=== PATIENT | female | born 1945 | race Two or more races ===

== ENCOUNTER 2025-06-16 22:04 | Inpatient (IN) | payer OTHER ==
[~2025-06-16] VITALS: Ht 157.5 cm; Wt 54.0 kg
--- NOTE | 2025-06-16 22:12 | NUR ---
SE RECIBE PACIENTE EN AMBULANCIA ACOMPANA[facility] DE H[facility]A Y ESTA REFIERE DESIRE SUFRIDO KATHY CAIDA EN EL HOGAR. SE ALICIA S/V Y SE UBICA.
[2025-06-16] MEDS ORDERED: DIOVAN HCT 1601 EAC1 PO (23:44)
[2025-06-16] MEDS ORDERED: 0.9 % SODIUM CHLORIDE 500 ML IV ONE (23:45)
[2025-06-16] MEDS ORDERED: CLONIDINE HCL0.1 MG PO (23:45)
[2025-06-16] MEDS ORDERED: ELIQUIS5 MG PO (23:46)
--- NOTE | 2025-06-17 00:36 | NUR ---
SE EDUCA ACERCA DE TX ORDENADO Y REFIERE ENTENDER. SE CANALIZA Y COLECTAN MUESTRAS DE LABORATORIO MEDIANTE MEDIDAS ASEPTICAS. SE ALICIA BP MANUAL.
[2025-06-17 00:52] LABS: ALT/SGPT 85.0 U/L (12-78); AST/SGOT 323.0 U/L (15-37); BILIRUBIN TOTAL 3.12 mg/dL (0.3-1.2); BUN CREA RATIO 24.0 (7.0-25.0); CREATININE SERUM 0.74 mg/dL (0.55-1.02); GLOBULINA 3.4 G/DL (2.4-3.5); GLUCOSE FASTING 155.0 mg/dL (65-100)
[2025-06-17 00:58] LABS: OSMOLALITY SERUM 229.0 MOSM/KG (275-295)
[2025-06-17 01:00] LABS: GFR 75.51
[2025-06-17] MEDS ORDERED: FAMOTIDINE/PF 20 MG/2 ML VIAL IV PUSH STA (01:02)
[2025-06-17] MEDS ORDERED: ONDANSETRON HCL 2 MG/ML VIAL IV STA (01:03)
[2025-06-17] MEDS ORDERED: ONDANSETRON HCL 2 MG/ML VIAL ONE (01:45)
[2025-06-17] MEDS ORDERED: FAMOTIDINE/PF 20 MG/2 ML VIAL ONE (01:45)
[2025-06-17 02:47] LABS: BASO % 0.2 % (0.1-1.2); EOS # 0.00 (0.04-0.54); EOS % 0.0 % (0.7-7.0); LYMPH # 0.41 (1.18-3.74); LYMPH % 3.7 % (19.3-53.1); MEAN PLATELET VOLUME 10.00 fl (9.4-12.4); MONO # 1.29 (0.24-0.82); MONO % 11.5 % (4.7-12.5); NEUT # 9.40 (1.56-6.13); NEUT % 84.2 % (34.0-71.1); RED CELL DISTRIBUTION WIDTH 11.0 % (11.6-14.4)
[2025-06-17 03:14] LABS: ALT/SGPT 87.0 U/L (12-78); AST/SGOT 322.0 U/L (15-37); BILIRUBIN TOTAL 3.04 mg/dL (0.3-1.2); BUN CREA RATIO 28.0 (7.0-25.0); CREATININE SERUM 0.6 mg/dL (0.55-1.02); GFR 96.19; GLOBULINA 2.8 G/DL (2.4-3.5); GLUCOSE FASTING 156.0 mg/dL (65-100); OSMOLALITY SERUM 226.0 MOSM/KG (275-295)
[2025-06-17] MEDS ORDERED: POTASSIUM BICARBONATE/CIT AC 25 MEQ TABLET.EFF PO ONE (12:45)
[2025-06-17] MEDS ORDERED: 0.9 % SODIUM CHLORIDE 1,000 ML IV SCH (12:45)
[2025-06-17] MEDS ORDERED: POTASSIUM CHLORIDE IN WATER 100 ML IV ONE ×2 (12:45→17:30)
[2025-06-17 15:44] LABS: BASO % 0.1 % (0.1-1.2); EOS # 0.00 (0.04-0.54); EOS % 0.0 % (0.7-7.0); LYMPH # 0.59 (1.18-3.74); LYMPH % 5.3 % (19.3-53.1); MEAN PLATELET VOLUME 10.40 fl (9.4-12.4); MONO # 1.37 (0.24-0.82); NEUT # 9.14 (1.56-6.13); NEUT % 81.9 % (34.0-71.1); RED CELL DISTRIBUTION WIDTH 11.0 % (11.6-14.4)
[2025-06-17 15:46] LABS: MONO % 12.3 % (4.7-12.5)
[2025-06-17 16:04] LABS: ALT/SGPT 82.0 U/L (12-78); AST/SGOT 250.0 U/L (15-37); BILIRUBIN TOTAL 3.23 mg/dL (0.3-1.2); BUN CREA RATIO 19.0 (7.0-25.0); CREATININE SERUM 0.78 mg/dL (0.55-1.02); GFR 71.06; GLOBULINA 2.7 G/DL (2.4-3.5); GLUCOSE FASTING 143.0 mg/dL (65-100)
[2025-06-17 17:16] LABS: OSMOLALITY SERUM 234.0 MOSM/KG (275-295)
[2025-06-17 17:45] LABS: COVID-19 AG NEGATIVE (NEGATIVE)
[2025-06-17] MEDS ORDERED: POTASSIUM PHOS,M-BASIC-D-BASIC 3 MM/ML VIAL IV ONE (17:45)
[2025-06-17] MEDS ORDERED: ONDANSETRON HCL 4 MG in 0.9 % SODIUM CHLORIDE 50 ML IV PRN (17:45)
[2025-06-18] VITALS (8 sets, daily range): BP systolic 105–160; BP diastolic 55–90; O2SAT 96–100
[2025-06-18] MEDS ORDERED: hydrALAZINE HCL 20 MG VIAL IV PRN (06:45)
[2025-06-18 08:08] LABS: URINE APPEARANCE Clear; URINE BILIRRUBIN Negative (NEGATIVE); URINE BLOOD Large; URINE COLOR Yellow; URINE GLUCOSE Negative (NEGATIVE); URINE KETONE 15 (NEGATIVE); URINE LEUKOCYTE Small; URINE NITRATE Negative; URINE PROTEIN 30 (NEGATIVE); URINE UROBILINOGEN 1.0 E.U./dl
[2025-06-18 08:10] LABS: URINE EPITHELIAL CELLS 18.1 uL (0.0-38.8); URINE RBC 12.6 uL (0.0-20.8); URINE WBC 37.6 uL (0.0-23.2)
[2025-06-18 08:44] LABS: BUN CREA RATIO 20.0 (7.0-25.0); CREATININE SERUM 0.56 mg/dL (0.55-1.02); GFR 104.16; GLUCOSE FASTING 112.0 mg/dL (65-100); OSMOLALITY SERUM 240.0 MOSM/KG (275-295); TSH 0.515 uIU/mL (0.358-3.74)
[2025-06-18 08:46] LABS: BASO % 0.1 % (0.1-1.2); EOS # 0.01 (0.04-0.54); EOS % 0.1 % (0.7-7.0); LYMPH # 0.91 (1.18-3.74); LYMPH % 9.0 % (19.3-53.1); MEAN PLATELET VOLUME 10.70 fl (9.4-12.4); MONO # 1.16 (0.24-0.82); MONO % 11.4 % (4.7-12.5); NEUT # 8.02 (1.56-6.13); NEUT % 78.9 % (34.0-71.1); RED CELL DISTRIBUTION WIDTH 11.3 % (11.6-14.4)
[2025-06-18] MEDS ORDERED: CEFTRIAXONE SODIUM 2,000 MG in 0.9 % SODIUM CHLORIDE 100 ML IV SCH (09:00)
[2025-06-18] MEDS ORDERED: CLONIDINE HCL 0.1 MG TABLET PO SCH (09:00)
[2025-06-18] MEDS ORDERED: VALSARTAN PO SCH (09:00)
[2025-06-18] MEDS ORDERED: POTASSIUM BICARBONATE/CIT AC 25 MEQ TABLET.EFF PO SCH (09:00)
[2025-06-18] MEDS ORDERED: APIXABAN 5 MG TABLET PO SCH (09:00)
[2025-06-18] MEDS ORDERED: HYDROCHLOROTHIAZIDE PO SCH (09:00)
[2025-06-18] MEDS ORDERED: MAGNESIUM SULFATE IN WATER 2 GM/50 ML PIGGYBAG IV ONE (09:00)
[2025-06-18 09:36] LABS: TYPE CELLS SQUAMOUS; URINE BACTERIA > 9821.5 uL (0.0-1933); URINE CAST 0.29 uL (0.0-1.40); URINE CRYSTALS NEGATIVE /HPF; URINE MUCUS HEAVY
[2025-06-18] MEDS ORDERED: PANTOPRAZOLE SODIUM 40 MG/VIAL VIAL IV SCH (12:00)
[2025-06-18 22:34] LABS: BUN CREA RATIO 12.0 (7.0-25.0); CREATININE SERUM 0.73 mg/dL (0.55-1.02); GFR 76.71; GLUCOSE FASTING 132.0 mg/dL (65-100); OSMOLALITY SERUM 261.0 MOSM/KG (275-295)
[2025-06-19 07:00] VITALS: BP 166/80; O2SAT 96
[2025-06-19 07:00] LABS: BASO % 0.5 % (0.1-1.2); EOS # 0.04 (0.04-0.54); EOS % 0.6 % (0.7-7.0); LYMPH # 1.01 (1.18-3.74); LYMPH % 15.5 % (19.3-53.1); MEAN PLATELET VOLUME 10.30 fl (9.4-12.4); MONO # 0.70 (0.24-0.82); MONO % 10.7 % (4.7-12.5); NEUT # 4.70 (1.56-6.13); NEUT % 72.1 % (34.0-71.1); RED CELL DISTRIBUTION WIDTH 11.5 % (11.6-14.4)
[2025-06-19 07:43] LABS: ALT/SGPT 63.0 U/L (12-78); AST/SGOT 114.0 U/L (15-37); BILIRUBIN TOTAL 1.61 mg/dL (0.3-1.2); BUN CREA RATIO 19.0 (7.0-25.0); CREATININE SERUM 0.48 mg/dL (0.55-1.02); GFR 124.44; GLOBULINA 2.5 G/DL (2.4-3.5); GLUCOSE FASTING 116.0 mg/dL (65-100); OSMOLALITY SERUM 262.0 MOSM/KG (275-295)
[2025-06-19] MEDS ORDERED: IRBESARTAN 150 MG TABLET PO SCH (10:33)
[2025-06-19] MEDS ORDERED: POTASSIUM PHOS,M-BASIC-D-BASIC 3 MM/ML VIAL IV ONE (11:00)
[2025-06-19 15:56] VITALS: BP 170/70; O2SAT 100
[2025-06-19 22:16] VITALS: BP 101/54; O2SAT 99
[2025-06-19 23:00] VITALS: BP 101/54; O2SAT 99
[2025-06-20 03:00] VITALS: BP 147/72; O2SAT 98
[2025-06-20 06:44] LABS: BASO % 0.6 % (0.1-1.2); EOS # 0.08 (0.04-0.54); EOS % 1.3 % (0.7-7.0); LYMPH # 1.26 (1.18-3.74); LYMPH % 20.4 % (19.3-53.1); MEAN PLATELET VOLUME 9.90 fl (9.4-12.4); MONO # 0.61 (0.24-0.82); MONO % 9.9 % (4.7-12.5); NEUT # 4.17 (1.56-6.13); NEUT % 67.6 % (34.0-71.1); RED CELL DISTRIBUTION WIDTH 11.6 % (11.6-14.4)
[2025-06-20 07:04] VITALS: BP 184/94; O2SAT 98
[2025-06-20 07:13] LABS: ALT/SGPT 57.0 U/L (12-78); AST/SGOT 82.0 U/L (15-37); BILIRUBIN TOTAL 1.06 mg/dL (0.3-1.2); BUN CREA RATIO 19.0 (7.0-25.0); CREATININE SERUM 0.52 mg/dL (0.55-1.02); GFR 113.46; GLOBULINA 2.6 G/DL (2.4-3.5); GLUCOSE FASTING 123.0 mg/dL (65-100); OSMOLALITY SERUM 265.0 MOSM/KG (275-295)
[2025-06-20] MEDS ORDERED: CEFTRIAXONE SODIUM 2,000 MG VIAL ONE (09:20)
[2025-06-20] MEDS ORDERED: hydrALAZINE HCL 20 MG VIAL ONE (12:43)
[2025-06-20] MEDS ORDERED: METOPROLOL SUCCINATE 25 MG TAB.SR.24H PO SCH (13:37)
[2025-06-20 13:41] VITALS: BP 119/54; O2SAT 100
[2025-06-20 15:10] VITALS: BP 128/60; O2SAT 99
[2025-06-20] MEDS ORDERED: IRBESARTAN 150 MG TABLET PO SCH (17:00)
[2025-06-20] MEDS ORDERED: hydrALAZINE HCL 20 MG VIAL IV PRN (20:21)
[2025-06-21 03:00] VITALS: BP 159/77; O2SAT 97
[2025-06-21 07:27] LABS: ALT/SGPT 48.0 U/L (12-78); AST/SGOT 59.0 U/L (15-37); BILIRUBIN TOTAL 1.03 mg/dL (0.3-1.2); BUN CREA RATIO 18.0 (7.0-25.0); CREATININE SERUM 0.49 mg/dL (0.55-1.02); GFR 121.51; GLOBULINA 2.5 G/DL (2.4-3.5); GLUCOSE FASTING 109.0 mg/dL (65-100); OSMOLALITY SERUM 268.0 MOSM/KG (275-295)
[2025-06-21] MEDS ORDERED: PANTOPRAZOLE SODIUM 40 MG TABLET.DR PO SCH (09:00)
[2025-06-21] MEDS ORDERED: IRBESARTAN 150 MG TABLET PO SCH (09:00)
[2025-06-21 09:23] VITALS: O2SAT 94
[2025-06-21] MEDS ORDERED: TOPROL XL25 M1 PO (12:33)
[2025-06-21] MEDS ORDERED: AMLODIPINE BESYL5 MG PO (12:33)
[2025-06-21] MEDS ORDERED: DIOVAN320 MG PO (12:33)
[2025-06-21] MEDS ORDERED: ELIQUIS5 MG PO (12:33)
[2025-06-21] MEDS ORDERED: AMLODIPINE BESYLATE 5 MG TABLET PO SCH (17:00)
== END 2025-06-21 14:10 | disposition home or self-care (01) | DRG 641 ==
LOC: ER 22:04 → ICU-2 06-17 17:52 → SEC-K 06-20 06:03 → MEDI 06-20 16:07
PROVIDERS: General Practice; Internal Medicine Nephrology; ADMIT Internal Medicine; ATTEND Internal Medicine
PROC: B020ZZZ Computerized Tomography (CT Scan) of Brain (ICD-10-PCS; principal; 2025-06-16)
PROC: BW21YZZ Computerized Tomography (CT Scan) of Abdomen and Pelvis using Other Contrast (ICD-10-PCS; 2025-06-17)
PROC: BW40ZZZ Ultrasonography of Abdomen (ICD-10-PCS; 2025-06-17)
PROC: 4A12X4Z Monitoring of Cardiac Electrical Activity, External Approach (ICD-10-PCS; 2025-06-21)
DX: E87.1 Hypo-osmolality and hyponatremia (principal); N39.0 Urinary tract infection, site not specified; E87.6 Hypokalemia; D72.829 Elevated white blood cell count, unspecified; R82.81 Pyuria; I48.91 Unspecified atrial fibrillation